=== PATIENT | female | born 1935 | race Caucasian/White ===

== ENCOUNTER 2018-10-25 12:52 | Day surgery (SDC) | payer MEDICARE ==
[~2018-10-25] VITALS: Ht 157.5 cm; Wt 71.7 kg
[~2018-10-25 12:52] MED LIST: ESTRADIOL42.5 GM PV; LISINOPRIL20 MG PO; MAGNESIUM250 MG PO; MYRBETRIQ50 MG PO; OMEPRAZOLE20 MG PO; VITAMIN D35000 UNI1 PO
--- NOTE | 2018-10-25 14:27 | NUR ---
10/25/18 1427 García Cuellar 1419 PT ARRIVED TO PACU, AWAKENS TO VOICE. VITALS STABLE. PT TALKING WITH RN. 1426 PT AWAKE ON AND OFF ASKING QUESTIONS REGARDING PROCEDURE. WILL CONTINUE TO MONITOR PT.
--- NOTE | 2018-10-27 12:09 | OR ---
[facility] [address], [place] [address] Signed DATE OF OPERATION: 10/25/2018 SURGEON: Haylee Pack MD PREOPERATIVE DIAGNOSIS: Recurrent dysphagia, history of esophageal dilation x4 ([facility]). POSTOPERATIVE DIAGNOSES: 1. No evidence of stricture. 2. Small focus of distal Bills esophagus with hiatal hernia. 3. Mild felinization of mid esophagus (questionable eosinophilic esophagitis). PROCEDURE: Esophagogastroduodenoscopy with biopsy. ANESTHESIA: Intravenous sedation, fentanyl 100 mcg, Versed 2 mg. INDICATIONS: This 83-year-old white woman is a patient of Dr. Isabel Sears. She is here from having lived most of her life in [facility], where she has undergone upper endoscopy and dilation at least four times. Her last dilation was in February of this year. She does not have severe dysphagia currently, but does have mild sensation of slow swallowing recently. She is taking Prilosec 40 mg a day. She is admitted at this time to undergo upper endoscopy and possible dilation depending on clinical findings. She understands the risks of bleeding, infection, and perforation and wished to proceed. FINDINGS: There is no sign of obvious stricture in any way. There was a small focus of Bills epithelium in the distal esophagus, however. This was affirmed by narrow band imaging. In the mid esophagus were some corrugated appearances of the mid esophagus at 20 cm, gerda to felinization. There was a hiatal hernia. The stomach and duodenum were normal. CLOtest was negative. Biopsies were taken throughout and in particular the midesophagus to assess for eosinophilic esophagitis. DESCRIPTION OF PROCEDURE: The patient was brought to the endoscopy suite and placed in lateral decubitus position undergoing topical Hurricaine spray hypopharyngeal anesthesia. In the lateral decubitus position with full cardiopulmonary monitoring, she was given intravenous sedation. A bite block was placed. An Olympus video upper endoscope was passed in the hypopharynx. Electronically Signed By: HAYLEE PACK MD 10/27/18 1209 PATIENT NAME: LEON ROMAN OPERATIVE REPORT DATE OF : 35 REPORT #: [id number] PHYSICIAN: HAYLEE PACK MD PCP: ISABEL SEARS MD REPORT IS CONFIDENTIAL AND NOT TO BE RELEASED WITHOUT AUTHORIZATION [facility] [address] [place], [place] [address] Signed Vocal cords were normal. Scope was advanced to the esophagus throughout its length. It showed no evidence of stricture or impediment to passage of the scope. The stomach was intubated and rugal folds appeared normal. The antrum appeared normal. Pylorus was normal. Scope was passed through into the duodenum, which was also normal. Biopsies were taken there to assess for celiac disease. The scope was withdrawn and retroflexed view undertaken showing moderate sized hiatal hernia. Biopsies were taken of the antrum for both HUMAIRA and pathologic testing. Careful withdrawal of scope to the distal esophagus and narrow band imaging revealed the area of mucosa above the Z-line that had mucosa consistent with Bills epithelium. On that basis, it was locally biopsied. The scope was withdrawn to the mid esophagus, where a somewhat corrugated feline appearance was noted, though not as intense as in most cases of eosinophilic esophagitis that I have seen. Biopsies were taken at 20 cm as well. The scope was further withdrawn. There were no other findings of concern. She was taken to recovery room in good condition. CONCLUSION DIAGNOSES: No evidence of current esophageal stricture to mandate dilation at this time. Questionable mucosal findings possibly suggestive of eosinophilic esophagitis for which treatment would be initiated if biopsy confirms. PLAN: She will see me back in about 6 weeks. We will certainly have her pathology report before then. Direct therapy would depend on the findings as well. She will continue with Prilosec 40 mg daily. MD DIANN Bowen/MODL /[id number] cc: Isabel Sears MD Copies: Electronically Signed By: HAYLEE PACK MD 10/27/18 1209 PATIENT NAME: LEON ROMAN OPERATIVE REPORT DATE OF : 35 REPORT #: [id number] PHYSICIAN: HAYLEE PACK MD PCP: ISABEL SEARS MD REPORT IS CONFIDENTIAL AND NOT TO BE RELEASED WITHOUT AUTHORIZATION [address] [address] Signed ~ Electronically Signed By: HAYLEE PACK MD 10/27/18 1209 PATIENT NAME: LEON ROMAN OPERATIVE REPORT DATE OF : 35 REPORT #: [id number] PHYSICIAN: HAYLEE PACK MD PCP: ISABEL SEARS MD REPORT IS CONFIDENTIAL AND NOT TO BE RELEASED WITHOUT AUTHORIZATION
== END 2018-10-25 14:55 | disposition home or self-care (01) ==
LOC: DS 12:52 → OPS 12:52 → DS 14:00 → OPS 14:00
PROVIDERS: Surgery
PROC: 0DB78ZX Excision of Stomach, Pylorus, Via Natural or Artificial Opening Endoscopic, Diagnostic (ICD-10-PCS; 2018-10-25)
PROC: 0DB28ZX Excision of Middle Esophagus, Via Natural or Artificial Opening Endoscopic, Diagnostic (ICD-10-PCS; 2018-10-25)
PROC: 0DB38ZX Excision of Lower Esophagus, Via Natural or Artificial Opening Endoscopic, Diagnostic (ICD-10-PCS; 2018-10-25)
PROC: 0DB98ZX Excision of Duodenum, Via Natural or Artificial Opening Endoscopic, Diagnostic (ICD-10-PCS; principal; 2018-10-25 14:00)
DX: K29.50 Unspecified chronic gastritis without bleeding (principal); K20.9 Esophagitis, unspecified; K29.80 Duodenitis without bleeding; K22.70 Barrett's esophagus without dysplasia; K44.9 Diaphragmatic hernia without obstruction or gangrene; K26.9 Duodenal ulcer, unspecified as acute or chronic, without hemorrhage or perforation; I10 Essential (primary) hypertension; K22.4 Dyskinesia of esophagus; R32 Unspecified urinary incontinence; Z98.890 Other specified postprocedural states
CPT/HCPCS: 88305; G0500; J2250; J3010; J7120

== ENCOUNTER 2022-09-04 09:45 | Day surgery (SDC) | payer MEDICARE ==
[~2022-09-04] VITALS: Ht 157.5 cm; Wt 64.5 kg
[~2022-09-04 09:45] MED LIST changes: +TROSPIUM CHLORI20 MG PO
--- NOTE | 2022-09-04 11:20 | NUR ---
09/04/22 1120 Ellyn Mirza 1112 PATIENT ARRIVES TO PACU RESTING WITH EYES CLOSED. OPENS EYES WITH VERBAL STIMULI, THEN STAYS AWAKE TALKING APPROPRIATELY WITH STAFF. RESP EVEN AND UNLABORED, ROOMAIR SATS >92%.
--- NOTE | 2022-09-04 15:13 | OR ---
[facility] [place] [facility] [address] [place], [place] [address] Signed DATE OF OPERATION: 09/04/2022 SURGEON: Haylee Pack MD PREOPERATIVE DIAGNOSES: 1. Recurrent dysphagia. 2. Prior history of multiple esophageal dilations; last dilation August 13, 2021 to 60 Colombian Central African over the wire dilation system. POSTOPERATIVE DIAGNOSES: 1. Recurrent dysphagia. 2. Prior history of multiple esophageal dilations; last dilation August 13, 2021 to 60 Colombian Central African over the wire dilation system. PROCEDURES: 1. Upper endoscopy, evaluation of esophagus, stomach and duodenum. 2. Central African over the wire dilation to 60-Colombian. ANESTHESIA: Propofol infusion, Juve Siemens, UNIT TENDER INDICATIONS: This 87-year-old white woman is a patient of Dr. Sears. She has lived much of her life in [facility]. She is well known to me from the past. She has had recurrent esophageal dysphagia. She last underwent upper endoscopy and esophageal dilation by me on August 13, 2021. A 60-Colombian Central African over the wire dilation system was accomplished with much improvement of her dysphagia. She is beginning to get dysphagia again and requests dilation. The risk of bleeding, infection, and perforation, so forth were reviewed with her, she understands and wished to proceed. FINDINGS: Upper endoscopy demonstrated no distinct stricture and certainly no neoplasm of the esophagus. The stomach itself was normal. She had a small hiatal hernia. There was no gastric outlet obstruction, the pylorus was normal and the duodenum was normal. Serial dilations with the Central African over the wire dilation system was undertaken from 51 to 54 and ultimately the 60-Colombian. The final dilation did have mucosal "cracking" as would be suspected and small amount of bleeding which abated. DESCRIPTION OF PROCEDURE: Electronically Signed By: HAYLEE PACK MD 09/04/22 1513 PATIENT NAME: LEON ROMAN OPERATIVE REPORT DATE OF : 35 REPORT #: [id number] PHYSICIAN: HAYLEE PACK MD PCP: ISABEL SEARS MD REPORT IS CONFIDENTIAL AND NOT TO BE RELEASED WITHOUT AUTHORIZATION [facility] [place] [facility] [address] [place], [place] [address] Signed The patient was brought to the endoscopy suite and placed in the lateral decubitus position. She was given intravenous sedation with propofol infusional technique with full cardiopulmonary monitoring. A bite block was placed. An Olympus video upper endoscope was passed in the hypopharynx. The scope was easily passed into the proximal esophagus and passed down the esophagus showing no sign of distinct stricture and no stigmata of eosinophilic esophagitis. The distal esophagus was normal. There was no Bills's epithelium or neoplasm. The scope was passed to the stomach, which was insufflated with air. Rugal folds were normal. The pylorus was normal and scope was passed through into the duodenum, which was normal. Scope was withdrawn and retroflexed view undertaken showing a small hiatal hernia. The scope was withdrawn once again into the esophagus, examined it closely to see if there is neoplasm, Bills's changes or distinct stricture. There was no distinct stricture, though the area of the mid esophagus did appear to be likely the source of her dysphagia. The scope was advanced once again into the stomach. The flexible dilation wire from the Central African over the wire dilation system passed down the operating channel of the scope. Stabilization of the wire was undertaken as the scope was withdrawn over it. Serial dilation was undertaken 1st with a 51 and followed by 54-Colombian dilator well lubricated and passed with all due care over the wire. The wire and dilator assembly were removed and the scope reintroduced. There appeared to be no cracking of mucosa or other mucosal change following the dilation. On that basis, the scope was reintroduced into the stomach. The wire passed once again and a final dilation with the 60-Colombian dilator undertaken. All due care was taken in passing the largest of the dilators available. The dilator and wire were removed and the scope reintroduced. In the mid esophagus, the area likely to be her area of dysphagia. There was indeed mucosal cracking, but no navin perforation of course. Irrigation was undertaken. This was indicative of probable successful dilation at this point. The scope was removed and the patient was ultimately taken to recovery room in good condition. CONCLUDING DIAGNOSIS: Dilation of esophagus to 60-Colombian with Central African over the wire dilator system. PLAN: We will initiate Carafate liquid four times a day for three days. She will maintain a soft diet for that amount of time as well. If she has any problems, she will let me know. We will see her back in November for followup. Electronically Signed By: HAYLEE PACK MD 09/04/22 1513 PATIENT NAME: LEON ROMAN OPERATIVE REPORT DATE OF : 35 REPORT #: [id number] PHYSICIAN: HAYLEE PACK MD PCP: ISABEL SEARS MD REPORT IS CONFIDENTIAL AND NOT TO BE RELEASED WITHOUT AUTHORIZATION [address] [address] Signed Haylee Pakc MD JM/MODL /[id number] cc: Isabel Sears MD Copies: ~ Electronically Signed By: HAYLEE PACK MD 09/04/22 1513 PATIENT NAME: LEON ROMAN OPERATIVE REPORT DATE OF : 35 REPORT #: [id number] PHYSICIAN: HAYLEE PACK MD PCP: ISABEL SEARS MD REPORT IS CONFIDENTIAL AND NOT TO BE RELEASED WITHOUT AUTHORIZATION
== END 2022-09-04 11:50 | disposition home or self-care (01) ==
LOC: OPS 09:45 → DS 09:45 → OPS 10:30 → DS 11:00 → OPS 11:50
PROVIDERS: ATTEND Surgery
PROC: 0D758ZZ Dilation of Esophagus, Via Natural or Artificial Opening Endoscopic (ICD-10-PCS; principal; 2022-09-04 10:30)
DX: K22.2 Esophageal obstruction (principal); K22.4 Dyskinesia of esophagus; I10 Essential (primary) hypertension; K21.9 Gastro-esophageal reflux disease without esophagitis; K44.9 Diaphragmatic hernia without obstruction or gangrene
CPT/HCPCS: J2704; J7121

== ENCOUNTER 2024-06-09 05:50 | Day surgery (SDC) | payer MEDICARE ==
[2024-06-02 15:24] VITALS: BP 111/73
[~2024-06-09] VITALS: Ht 157.5 cm; Wt 66.8 kg
[~2024-06-09 05:50] MED LIST changes: +LACTATED RINGER'S 1,000 ML IV SCH
[2024-06-09 06:04] VITALS: BP 160/69
[2024-06-09] MEDS ORDERED: ETOMIDATE 40 MG/20 ML VIAL ONE (06:52)
[2024-06-09] MEDS ORDERED: SUCCINYLCHOLINE IN 0.9% NACL 200 MG/10 ML SYRINGE ONE (06:57)
[2024-06-09] MEDS ORDERED: propofoL 200 MG/20 ML VIAL ONE (06:58)
[2024-06-09] MEDS ORDERED: KETOROLAC TROMETHAMINE 30 MG/ML VIAL ONE (06:58)
[2024-06-09] MEDS ORDERED: DEXAMETHASONE SOD PHOS 4 MG/ML VIAL ONE (06:59)
[2024-06-09] MEDS ORDERED: IBLOOD GLUCOSE TEST STRIP 1 EA TEST VI PRN (07:00)
[2024-06-09] MEDS ORDERED: LIDOCAINE HCL 1% 5 ML SDV INJ ONE (07:00)
--- NOTE | 2024-06-09 07:28 | NUR ---
VISITED DURING SPIRITUAL CARE ROUNDS. PT EXPRESSED SOME ANXIETY REGARDING PROCEDURE. FOREST ECOLOGIST PROVIDED SUPPORTIVE PRESENCE, ANXIETY CONTAINMENT, FACILITATED INTERACTION WITH THERAPY DOG, PROVIDED PRAYER. PT EXPRESSED GRATITUDE, APPEARED TO BE LESS ANXIOUS.
[2024-06-09 10:24] VITALS: BP 145/71
--- NOTE | 2024-06-09 10:35 | NUR ---
06/09/24 Moy5 MendozaJudith J 0800- PT ARRIVES TO PACU, LEFT LATERAL POSITION. OPA IN PLACE, BREATHING EVEN AND NON LABORED, O2 AT 6L PER MASK. LR INFUSING TO RW IV. NON REACTIVE TO ALL STIMULUS AT THIS TIME. ABD SOFT, NON DISTENDED. ALL MONITORS IN PLACE. 0805- PT WAKES SELF COUGHING, OPENS EYES. OPA REMOVED AT THIS TIME, REORIENTED TO TIME AND PLACE. O2 LEFT IN PLACE. PT DROWSY BUT ASKING QUESTIONS, HARD TO UNDERSTAND. 0808- PT CONTINUES TO ASK QUESTIONS INTERMITTENTLY AND PULLING AT O2 MASK. MOVED TO ROOM AIR AT THIS TIME. WILL CONTINUE TO MONITOR. 0815- DR PACK AT BEDSIDE, PT CONVERSING AND ASKING QUESTIONS. NO SIGNS OF DISTRESS. 0822- PT SAT UP IN BED, ICE WATER PROVIDED. TOLERATING WELL. PT DENIES PAIN OR NAUSEA. 0832- PT UP TO SIDE OF BED, NO DIZZINESS OR NAUSEA. PT RIDE CALLED TO GO HOME. PT REPORTS ABLE TO GET DRESSED. 0849- PT ALERT AND ORIENTED. VERBALIZED UNDERSTANDING OF INSTRUCTIONS. SALINE LOCK REMOVED, TIP INTACT, DRESSING APPLIED. PT TRANSFERRED TO WHEELCHAIR STEADY ON FEET, NO SIGNS OF DISTRESS. PT TAKEN OUT TO FRIENDS CAR WITH ALL BELONGINGS.
--- NOTE | 2024-06-09 19:04 | OR ---
[facility] [address] [place], [place] [address] Signed DATE OF OPERATION: 06/09/2024 SURGEON: Haylee Pack MD PREOPERATIVE DIAGNOSES: 1. Recurrent dysphagia. 2. History of multiple esophageal dilations. POSTOPERATIVE DIAGNOSIS: Mild chronic esophagitis, no distinct stricture. PROCEDURES: 1. Esophagogastroduodenoscopy with biopsy of midesophagus. 2. Esophageal dilation (Georgian azit-pcm-lzvw dilation) (54-Tanzanian to 60-Tanzanian). ANESTHESIA: Intravenous sedation, propofol; Haylee Mcduffie CRNA INDICATIONS FOR THE PROCEDURE: This 89-year-old white woman is a patient of Dr. Isabel Sears and known to me for the past several years, having a longstanding history of esophageal dysphagia, undergoing dilation in [place], where she previously lived and also by me on more than one occasion. She generally responds well to esophageal dilation. She does take PPI medication. Evaluation in December of this year revealed she was having some recurrent dysphagia despite taking her PPI medication. Her last upper endoscopy and dilation was in September of 2022, at which a 51 and 54, then ultimately 60-Tanzanian Georgian vwda-yzd-axfl dilation procedure was undertaken with good clinical benefit. She is admitted at this time to undergo upper endoscopy and dilation once again. She understands the risk of bleeding, infection, and perforation as well as failure to improve her symptoms and wishes to proceed. FINDINGS: There is no distinct esophageal stricture. Biopsies were taken in mid esophagus at conclusion of the procedure to assess for eosinophilic esophagitis. The stomach and duodenum were normal. The flap valve was reasonably well formed, though not perfect. Dilation was undertaken first with a 54-Tanzanian dilator, followed by 60-Tanzanian dilator without sign of complication. She did not have "cracking" of the distal esophageal mucosa although that has been seen in the past. Electronically Signed By: HAYLEE PACK MD 06/09/24 0635 PATIENT NAME: LEON ROMAN OPERATIVE REPORT DATE OF : 35 REPORT #: [id number] PHYSICIAN: HAYLEE PACK MD PCP: ISABEL SEARS MD REPORT IS CONFIDENTIAL AND NOT TO BE RELEASED WITHOUT AUTHORIZATION [facility] [address] [place], [place] [address] Signed DESCRIPTION OF PROCEDURE: The patient was brought to the endoscopy suite and placed in lateral decubitus position after undergoing topical lidocaine hypopharyngeal anesthesia. A bite block was placed and she was given intravenous sedation with propofol sedation by the computed tomography technician. An Olympus video upper endoscope was passed into the hypopharynx. Vocal cords appeared normal. Scope was easily passed into the esophagus throughout its length. It showed mild chronic inflammation, but no sign of actual stricture and certainly no neoplasm, no evidence of Bills epithelium. Scope was passed through the stomach, which was insufflated with air. Rugal folds were normal as was the antrum. The scope was passed into the duodenum, which was also normal. There was no sign of gastric outlet obstruction at the pylorus. The scope was withdrawn. Retroflexed view undertaken showing a reasonably intact flap valve. No sign of large hiatal hernia. The scope was straightened and withdrawn to the distal esophagus, which confirmed no evidence of malignancy or Bills epithelium. The scope was then advanced to the stomach and a flexible wire passed through the operating channel of the scope and the scope carefully withdrawn. Stabilizing the wire as it was removed. A well lubricated 54-Tanzanian Georgian vndd-gku-pbdz dilator was then passed jniw-eml-xdxo with all due care soon appropriate limits and withdrawn. The wire was withdrawn, the scope reintroduced and re-examination undertaken. There was no sign of traumatic injury to the esophagus or elsewhere. With similar technique, the wire was replaced. Dilation then undertaken with the 60-Tanzanian dilator, also well lubricated. This had a bit more resistance and excessive force was not exerted and the dilator and wire assembly removed. Re-examination with the endoscope showed no sign of cracking of the mucosa. No sign of injury and no other abnormality. Midesophageal biopsies then undertaken to assess for eosinophilic esophagitis. The scope was carefully withdrawn and removed. The patient was taken to the recovery room in good condition. CONCLUDING DIAGNOSIS: Georgian biwo-ybm-hqyv, 60-Tanzanian dilation accomplished and biopsy taken of midesophagus. PLAN: We would like to see her back in about six months to assess her ongoing progress with her swallowing. If she has problems in the meantime, she will let me know. She will otherwise return to the ongoing care of Dr. Isabel Sears. Haylee Pack MD Electronically Signed By: HAYLEE PACK MD 06/09/24 1904 PATIENT NAME: LEON ROMAN OPERATIVE REPORT DATE OF : 35 REPORT #: [id number] PHYSICIAN: HAYLEE PACK MD PCP: ISABEL SEARS MD REPORT IS CONFIDENTIAL AND NOT TO BE RELEASED WITHOUT AUTHORIZATION [address] [address] Signed /MODL /[id number] cc: Isabel Sears MD Copies: ~ Electronically Signed By: HAYLEE PACK MD 06/09/24 1904 PATIENT NAME: LEON ROMAN OPERATIVE REPORT DATE OF : 35 REPORT #: [id number] PHYSICIAN: HAYLEE PACK MD PCP: ISABEL SEARS MD REPORT IS CONFIDENTIAL AND NOT TO BE RELEASED WITHOUT AUTHORIZATION
--- NOTE | 2024-06-14 18:05 | PATH ---
[facility] [address] [facility] [place] [address] Signed SPECIMEN(S): A MID ESOPHAGEAL BIOPSY SPECIMEN SOURCE: A. MID ESOPHAGEAL BIOPSY CLINICAL HISTORY: GERD, history of esophageal stricture, BX: Dilation to 60F, mild esophagitis FINAL PATHOLOGIC DIAGNOSIS: Mid esophageal biopsy: - Fragment of benign esophageal epithelium, negative for increased epithelial eosinophils. 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 COMMENT: Two tissue fragments were identified within the specimen container at the time of the initial gross examination. One of these is a colon fragment. Clinical correlation is requested to determine the source of this specimen. As part of [facility]' Quality Improvement Program, this case was reviewed by another member of our pathology staff. JVR:KAITLIN:eric MICROSCOPIC EXAMINATION: Histologic sections of all submitted blocks are examined by light microscopy. These findings, together with the gross examination, support the pathologic diagnosis. GROSS DESCRIPTION: The specimen, labeled and designated "Alessandro, mid esophageal biopsy," is received in formalin and consists of two gil soft tissue fragments, ranging from 0.2-0.3 cm. Entirely submitted in (A1). VB (under the direct supervision of a pathologist) The Gross Description was prepared using a voice recognition system. The report was reviewed for accuracy; however, sound-alike word errors, addition and/or deletions may occur. If there is any question about this report, please contact Client Services. PERFORMING LABORATORY: Technical component was performed by [facility], [address] [place] [id number] (CLIA# [id number]). Professional interpretation was PATIENT NAME: LEON ROMAN PATHOLOGY DATE OF : 35 REPORT #: [id number] PHYSICIAN: MARY PATHOLOGY PCP: JAVY LOOMIS MD REPORT IS CONFIDENTIAL AND NOT TO BE RELEASED WITHOUT AUTHORIZATION [facility] [address] [place], [place] [address] Signed performed by [facility] [address] [place] [address] (CLIA#: [id number]). Diagnostician: Silas Mann MD Pathologist Electronically Signed 06/14/2024 Copies: ~ PATIENT NAME: LEON ROMAN PATHOLOGY DATE OF : 35 REPORT #: [id number] PHYSICIAN: MARY PATHOLOGY PCP: JAVY LOOMIS MD REPORT IS CONFIDENTIAL AND NOT TO BE RELEASED WITHOUT AUTHORIZATION
== END 2024-06-09 08:49 | disposition home or self-care (01) ==
LOC: DS 05:50
PROVIDERS: ATTEND Surgery
PROC: 0DB58ZX Excision of Esophagus, Via Natural or Artificial Opening Endoscopic, Diagnostic (ICD-10-PCS; 2024-06-09)
PROC: 0D758ZZ Dilation of Esophagus, Via Natural or Artificial Opening Endoscopic (ICD-10-PCS; principal; 2024-06-09 07:30)
DX: K21.00 Gastro-esophageal reflux disease with esophagitis, without bleeding (principal); D13.0 Benign neoplasm of esophagus; K22.4 Dyskinesia of esophagus; I10 Essential (primary) hypertension; Z79.899 Other long term (current) drug therapy
CPT/HCPCS: 00731; 88305; J0330; J1100; J1885; J2704; J7121